=== PATIENT | male | born 1985 | race Asian ===

== ENCOUNTER 2023-12-08 16:31 | Emergency (ER) | payer OTHER ==
[~2023-12-08] VITALS: Ht 162.6 cm; Wt 68.0 kg
[2023-12-08] MEDS ORDERED: SERT25TA PO (16:40)
[2023-12-08] MEDS: IV NS 1000 ML 1,000 ML IV ONE (16:51)
[2023-12-08 16:56] LABS: BASOPHILS # (AUTO) 0.1 K/UL (0.0-0.2); BASOPHILS % (AUTO) 0.6 % (0.0-2.0); EOSINOPHILS % (AUTO) 0.2 % (0.0-7.0); HEMATOCRIT 45.1 % (36.7-47.1); HEMOGLOBIN 15.4 g/dL (12.5-16.3); LYMPHOCYTES # (AUTO) 0.8 K/uL (0.8-4.8); LYMPHOCYTES % (AUTO) 6.4 % (20.5-51.5); MEAN CORPUSCULAR HEMOGLOBIN 29.9 uug (23.8-33.4); MEAN CORPUSCULAR HGB CONC 34 g/dL (32.5-36.3); MEAN CORPUSCULAR VOLUME 87.4 fL (73.0-96.2); MONOCYTES # (AUTO) 0.4 K/uL (0.1-1.30); MONOCYTES % (AUTO) 3.5 % (0.0-11.0); NEUTROPHILS # (AUTO) 10.9 K/uL (1.8-8.9); NEUTROPHILS % (AUTO) 89.3 % (38.5-71.5); PLATELET COUNT (AUTO) 291 K/uL (152-348); RED BLOOD CELL COUNT(AUTO) 5.15 MIL/uL (4.06-5.63); RED CELL DISTRIBUTION WIDTH 13.8 % (12.1-16.2); WHITE BLOOD COUNT (AUTO) 12.2 K/uL (3.6-10.2)
[2023-12-08 17:02] LABS: CALCIUM 9.4 mg/dL (8.5-10.1); CARBON DIOXIDE 22 mmol/L (21-32); CHLORIDE 100 mmol/L (98-107); GLUCOSE 146 mg/dL (74-106); POTASSIUM 3.7 mmol/L (3.5-5.1); SODIUM SERUM 136 mmol/L (136-145); UREA NITROGEN, BLOOD 12 mg/dL (7-18)
[2023-12-08 17:03] LABS: DIFFERENTIAL COMMENT 1
[2023-12-08 17:10] LABS: ALANINE AMINOTRANSFERASE 46 U/L (16-63); ALBUMIN 4.4 g/dL (3.4-5.0); ALKALINE PHOSPHATASE 67 U/L (50-136); ASPARTATE AMINOTRANSFERASE 17 U/L (15-37); BILIRUBIN,DIRECT 0.1 mg/dL (0.0-0.2); BILIRUBIN,TOTAL 0.6 mg/dL (0.2-1.0); TOTAL PROTEIN, SERUM 8.1 g/dL (6.4-8.2)
[2023-12-08] MEDS: KETOROLAC TROMETHAMINE 30 MG INJ IVP ONE (17:27)
[2023-12-08] MEDS ORDERED: KETOROLAC TROMETHAMINE 30 MG INJ ONE (17:27)
[2023-12-08] MEDS ORDERED: METOCLOPRAMIDE HCL 10 MG/2 ML VIAL ONE (17:27)
[2023-12-08] MEDS ORDERED: diphenhydrAMINE 50 MG/1 ML VIAL ONE (17:27)
[2023-12-08] MEDS: diphenhydrAMINE 50 MG/1 ML VIAL IV ONE (17:29)
[2023-12-08] MEDS: METOCLOPRAMIDE HCL 10 MG/2 ML VIAL IV ONE (17:31)
[2023-12-08] MEDS ORDERED: SYRI-29 MC (17:42)
[2023-12-08] MEDS ORDERED: MECO10006 IM (17:42)
[2023-12-08 18:45] VITALS: O2SAT 97
== END 2023-12-08 18:54 | disposition home or self-care (01) ==
LOC: ER 16:34
DX: F45.8 Other somatoform disorders (principal); G43.909 Migraine, unspecified, not intractable, without status migrainosus; F32.A Depression, unspecified
CPT/HCPCS: 99284; 96374; 96375; 80076; 80048; 85025; 85379; 84484; 36415; J1200; J1885; J2765; J7040; A4606; A4663